=== PATIENT | male | born 1960 | race Caucasian/White ===

== ENCOUNTER 2023-02-12 22:16 | Inpatient (IN) | payer MEDICAID ==
[~2023-02-12] VITALS: Ht 165.1 cm; Wt 71.2 kg
[2023-02-12 22:16] VITALS: BP_SYST 96; PULSE 108; RESP 18; TEMP 97.8; O2SAT 96
[2023-02-13] MEDS ORDERED: NACL 0.9% 1,000 ML IV ONE (01:00)
[2023-02-13] MEDS ORDERED: ONDANSETRON HCL 4 MG/2 ML VIAL IVP ONE (01:15)
[2023-02-13] MEDS ORDERED: TYLL650 GT (01:30)
[2023-02-13] MEDS ORDERED: AMLO5TAB4 GT (01:32)
[2023-02-13] MEDS ORDERED: LACT1TAB14 PEG (01:33)
[2023-02-13] MEDS ORDERED: ALBU2.5V7 INH ×2 (01:33→01:34)
[2023-02-13] MEDS ORDERED: ATOR40TA68 PEG (01:34)
[2023-02-13] MEDS ORDERED: ATRMDI INH ×2 (01:36→01:37)
[2023-02-13] MEDS ORDERED: CHLO473M5 PO (01:39)
[2023-02-13] MEDS ORDERED: BISA10SU77 RC (01:39)
[2023-02-13 01:40] LABS: BASOPHILS # (AUTO) 0.1 K/uL (0.0-0.2); BASOPHILS % (AUTO) 0.6 % (0.0-2.0); EOSINOPHILS % (AUTO) 0.1 % (0.0-4.0); HEMATOCRIT 37.8 % (36-54); HEMOGLOBIN 12.6 g/dL (14.0-18.0); LYMPHOCYTES # (AUTO) 1.4 K/uL (1.0-5.5); LYMPHOCYTES % (AUTO) 5.4 % (20.5-51.5); MEAN CORPUSCULAR HEMOGLOBIN 28 pg (27-31); MEAN CORPUSCULAR HGB CONC 33 % (32-36); MEAN CORPUSCULAR VOLUME 84 fL (79.0-98.0); MONOCYTES # (AUTO) 0.9 K/uL (0.0-1.0); MONOCYTES % (AUTO) 3.5 % (1.7-9.3); NEUTROPHILS # (AUTO) 23.8 K/uL (1.8-7.7); NEUTROPHILS % (AUTO) 90.4 % (40.0-70.0); PLATELET COUNT (AUTO) 465 K/uL (130-430); RED BLOOD CELL COUNT(AUTO) 4.52 MIL/uL (4.2-6.2); RED CELL DISTRIBUTION WIDTH 14.4 % (9.0-15.0); WHITE BLOOD COUNT (AUTO) 26.3 K/uL (4.8-10.8)
[2023-02-13] MEDS ORDERED: VITD2000 PEG (01:42)
[2023-02-13] MEDS ORDERED: LOVI40 SQ (01:43)
[2023-02-13] MEDS ORDERED: HYDR-3917 PEG (01:44)
[2023-02-13] MEDS ORDERED: MELA5TAB12 PEG (01:45)
[2023-02-13] MEDS ORDERED: LOSA50TA3 PEG (01:45)
[2023-02-13] MEDS ORDERED: MULT-1089 PEG (01:46)
[2023-02-13] MEDS ORDERED: ONDA-8 PEG (01:47)
[2023-02-13] MEDS ORDERED: PRO40 PEG (01:48)
[2023-02-13] MEDS ORDERED: POLY17PO4 PEG (01:49)
[2023-02-13 01:51] LABS: CALCIUM 9.2 mg/dL (8.4-11.0); CREATININE 0.86 mg/dL (0.55-1.30); POTASSIUM 4.1 mmol/L (3.5-5.1)
[2023-02-13 01:55] LABS: ALBUMIN 3.2 g/dL (3.4-4.8); TOTAL BILIRUBIN 0.7 mg/dL (0.0-1.0); TOTAL PROTEIN, SERUM 6.9 g/dL (6.4-8.3)
[2023-02-13] MEDS ORDERED: CARB30DR OP (01:55)
[2023-02-13] MEDS ORDERED: ROBINUL PEG (01:56)
[2023-02-13 01:58] LABS: INR 1.1 (0.80-1.20); PROTHROMBIN TIME 11.3 SECS (9.5-12.5)
[2023-02-13] MEDS ORDERED: SCOP1PAT21 TD (01:58)
[2023-02-13] MEDS ORDERED: ASCO500S10 PEG (02:01)
[2023-02-13] MEDS ORDERED: ZINC50TA15 PEG (02:03)
[2023-02-13] MEDS ORDERED: CRAN1CAP6 PEG (02:06)
[2023-02-13] MEDS ORDERED: CRAN1CAP8 PO (02:06)
[2023-02-13] MEDS ORDERED: VANCOMYCIN HCL 1.25 GM/NS 250 ML IV ONE (02:45)
[2023-02-13] MEDS ORDERED: cefTRIAXone 2 GM VIAL ONE (03:51)
[2023-02-13] MEDS ORDERED: PANTOPRAZOLE SODIUM 40 MG/VIAL (PROTONIX) IVP ONE (04:00)
[2023-02-13] MEDS ORDERED: D5/0.45 NS 1,000 ML IV SCH (04:15)
[2023-02-13] MEDS ORDERED: VANCOMYCIN HCL 500 MG/VIAL IV ONE (05:07)
[2023-02-13] MEDS ORDERED: VANCOMYCIN HCL 1000 MG/VIAL IV ONE (05:07)
[2023-02-13] MEDS ORDERED: ONDANSETRON HCL 4 MG/2 ML VIAL ONE (05:34)
[2023-02-13 05:53] LABS: BILIRUBIN,URINE NEGATIVE (NEGATIVE); BLOOD, URINE 2+ (NEGATIVE); COLOR,URINE YELLOW (YELLOW); GLUCOSE,URINE NEGATIVE (NEGATIVE); KETONES,URINE NEGATIVE (NEGATIVE); LEUKOCYTE ESTERASE ,URINE NEGATIVE (NEGATIVE); NITRITE, URINE NEGATIVE (NEGATIVE); PROTEIN URINE TRACE (NEGATIVE); UROBILINOGEN,URINE 0.2 (0.2-1.0)
[2023-02-13 06:25] LABS: CLARITY/URINE HAZY (CLEAR)
[2023-02-13 06:27] LABS: BACTERIA,URINE None Seen /HPF (None Seen); CALCIUM OXALATE CRYSTALS,UR 0-10 /HPF (None Seen); RBC,URINE 20-50 /HPF (0-3); WBC,URINE 0-3 /HPF (0-3)
[2023-02-13] MEDS: PANTOPRAZOLE SODIUM 40 MG/VIAL (PROTONIX) IVP SCH ×2 (09:00→23:10)
[2023-02-13] MEDS ORDERED: KETOROLAC TROMETHAMINE 30 MG VIAL IVP PRN (10:15)
[2023-02-13] MEDS ORDERED: IPRATROPIUM/ALBUTEROL SULFATE 3 ML AMPUL.NEB (DUONEB) INH PRN (11:15)
[2023-02-13 13:14] VITALS: O2SAT 96
[2023-02-13] MEDS: IPRATROPIUM/ALBUTEROL SULFATE 3 ML AMPUL.NEB (DUONEB) INH SCH ×2 (13:14→20:13)
[2023-02-13 13:40] VITALS: BP_SYST 104; PULSE 91; O2SAT 96
[2023-02-13] MEDS ORDERED: BISACODYL 10 MG/SUPPOSITORY RC PRN (13:45)
[2023-02-13] MEDS ORDERED: IPRATROPIUM BROMIDE 17 mCg/ACTUATION, 12.9 GM AER.W.ADAP INH PRN (13:45)
[2023-02-13] MEDS ORDERED: HYDROmorphone 2 MG/ML VIAL IVP PRN (13:45)
[2023-02-13] MEDS ORDERED: ALBUTEROL SULFATE 0.083% 2.5 MG/3 ML VIAL.NEB INH PRN ×2 (13:45)
[2023-02-13] MEDS ORDERED: ACETAMINOPHEN 650 MG/20.3 ML UDC GT PRN (13:45)
[2023-02-13] MEDS ORDERED: ONDANSETRON HCL 4 MG/2 ML VIAL IVP PRN (14:00)
[2023-02-13] MEDS ORDERED: IPRATROPIUM BROM 0.5 MG/2.5 ML VIAL.NEB (ATROVENT) INH PRN (14:15)
[2023-02-13] MEDS: KCL 20 mEq in D5/0.45NS 1000mL 1,000 ML IV SCH (14:42)
[2023-02-13 20:00] VITALS: BP_SYST 126; PULSE 88; RESP 20; TEMP 97.5; O2SAT 100
[2023-02-13 20:13] VITALS: O2SAT 100
[2023-02-13 22:00] VITALS: O2SAT 100
[2023-02-13] MEDS: CHLORHEXIDINE GLUC 0.12% 15 ML MOUTHWASH UDC MM SCH (22:28)
[2023-02-14] VITALS (11 sets, daily range): BP systolic 103–127; PULSE 88–105; RESP 16–20; TEMP 96.9–97.7; O2SAT 97–100
[2023-02-14] MEDS: IPRATROPIUM/ALBUTEROL SULFATE 3 ML AMPUL.NEB (DUONEB) INH SCH ×4 (01:28→19:23)
[2023-02-14] MEDS: KCL 20 mEq in D5/0.45NS 1000mL 1,000 ML IV SCH ×2 (01:47→14:31)
[2023-02-14 05:08] LABS: BASOPHILS # (AUTO) 0.1 K/uL (0.0-0.2); BASOPHILS % (AUTO) 0.5 % (0.0-2.0); EOSINOPHILS # (AUTO) 0.7 K/uL (0.0-0.4); EOSINOPHILS % (AUTO) 5.7 % (0.0-4.0); HEMATOCRIT 33.3 % (36-54); LYMPHOCYTES # (AUTO) 1.4 K/uL (1.0-5.5); LYMPHOCYTES % (AUTO) 12.3 % (20.5-51.5); MEAN CORPUSCULAR HEMOGLOBIN 28 pg (27-31); MEAN CORPUSCULAR HGB CONC 33 % (32-36); MEAN CORPUSCULAR VOLUME 84 fL (79.0-98.0); MONOCYTES # (AUTO) 0.7 K/uL (0.0-1.0); MONOCYTES % (AUTO) 5.8 % (1.7-9.3); NEUTROPHILS # (AUTO) 8.9 K/uL (1.8-7.7); NEUTROPHILS % (AUTO) 75.7 % (40.0-70.0); PLATELET COUNT (AUTO) 405 K/uL (130-430); RED BLOOD CELL COUNT(AUTO) 3.95 MIL/uL (4.2-6.2); RED CELL DISTRIBUTION WIDTH 14.1 % (9.0-15.0); WHITE BLOOD COUNT (AUTO) 11.8 K/uL (4.8-10.8)
[2023-02-14 05:33] LABS: ALBUMIN 2.8 g/dL (3.4-4.8); CALCIUM 8.8 mg/dL (8.4-11.0); CREATININE 0.73 mg/dL (0.55-1.30); POTASSIUM 3.6 mmol/L (3.5-5.1); TOTAL BILIRUBIN 0.4 mg/dL (0.0-1.0); TOTAL PROTEIN, SERUM 6.2 g/dL (6.4-8.3)
[2023-02-14] MEDS: CHLORHEXIDINE GLUC 0.12% 15 ML MOUTHWASH UDC MM SCH ×2 (09:00→21:03)
[2023-02-14] MEDS: PANTOPRAZOLE SODIUM 40 MG/VIAL (PROTONIX) IVP SCH ×2 (09:00→21:02)
[2023-02-14] MEDS ORDERED: fentaNYL CITRATE/PF 100 MCG/2 ML AMP ONE (11:18)
[2023-02-14] MEDS ORDERED: MIDAZOLAM HCL 5 MG/5 ML VIAL ONE (11:18)
[2023-02-14] MEDS: LOSARTAN POTASSIUM 50 MG TABLET (COZAAR) GT SCH (14:27)
[2023-02-14] MEDS: CHOLECALCIFEROL (VITAMIN D3) 2,000 UNIT TABLET GT SCH (14:28)
[2023-02-14] MEDS: MULTIVITAMINS TAB 1 TABLET GT SCH (14:29)
[2023-02-14] MEDS: POLYETHYLENE GLYCOL 3350, 17 GM/ POWD.PACK PEG SCH (14:29)
[2023-02-14] MEDS: amLODIPine BESYLATE 5 MG TABLET GT SCH (14:29)
[2023-02-14] MEDS ORDERED: SCOPOLAMINE HYDROBROMIDE 1 MG PATCH .72 H (TRANSDERM-SCOP) TD SCH (18:00)
[2023-02-14] MEDS ORDERED: TEMAZEPAM 7.5 MG CAPSULE PO PRN (21:15)
[2023-02-14] MEDS ORDERED: TEMAZEPAM 15 MG CAPSULE GT PRN (21:45)
[2023-02-15] VITALS (12 sets, daily range): BP systolic 105–131; PULSE 87–104; RESP 18–20; TEMP 96.5–98; O2SAT 98–100
[2023-02-15] MEDS: KCL 20 mEq in D5/0.45NS 1000mL 1,000 ML IV SCH ×3 (01:05→17:00)
[2023-02-15] MEDS: IPRATROPIUM/ALBUTEROL SULFATE 3 ML AMPUL.NEB (DUONEB) INH SCH ×4 (01:13→20:01)
[2023-02-15 05:30] LABS: BASOPHILS % (AUTO) 0.3 % (0.0-2.0); EOSINOPHILS # (AUTO) 0.4 K/uL (0.0-0.4); EOSINOPHILS % (AUTO) 3.1 % (0.0-4.0); HEMATOCRIT 31.9 % (36-54); HEMOGLOBIN 10.8 g/dL (14.0-18.0); LYMPHOCYTES # (AUTO) 1.3 K/uL (1.0-5.5); LYMPHOCYTES % (AUTO) 10.4 % (20.5-51.5); MEAN CORPUSCULAR HEMOGLOBIN 28 pg (27-31); MEAN CORPUSCULAR HGB CONC 34 % (32-36); MEAN CORPUSCULAR VOLUME 84 fL (79.0-98.0); MONOCYTES # (AUTO) 0.6 K/uL (0.0-1.0); MONOCYTES % (AUTO) 4.8 % (1.7-9.3); NEUTROPHILS # (AUTO) 9.8 K/uL (1.8-7.7); NEUTROPHILS % (AUTO) 81.4 % (40.0-70.0); PLATELET COUNT (AUTO) 428 K/uL (130-430); RED CELL DISTRIBUTION WIDTH 14.2 % (9.0-15.0); WHITE BLOOD COUNT (AUTO) 12.1 K/uL (4.8-10.8)
[2023-02-15 05:45] LABS: CALCIUM 8.3 mg/dL (8.4-11.0); CREATININE 0.6 mg/dL (0.55-1.30); POTASSIUM 3.5 mmol/L (3.5-5.1)
[2023-02-15] MEDS: POLYETHYLENE GLYCOL 3350, 17 GM/ POWD.PACK PEG SCH (09:00)
[2023-02-15] MEDS: MULTIVITAMINS TAB 1 TABLET GT SCH (09:40)
[2023-02-15] MEDS: CHOLECALCIFEROL (VITAMIN D3) 2,000 UNIT TABLET GT SCH (09:40)
[2023-02-15] MEDS: PANTOPRAZOLE SODIUM 40 MG/VIAL (PROTONIX) IVP SCH ×2 (09:41→20:16)
[2023-02-15] MEDS: LOSARTAN POTASSIUM 50 MG TABLET (COZAAR) GT SCH (09:41)
[2023-02-15] MEDS: CHLORHEXIDINE GLUC 0.12% 15 ML MOUTHWASH UDC MM SCH ×2 (09:42→20:16)
[2023-02-15] MEDS: amLODIPine BESYLATE 5 MG TABLET GT SCH (09:58)
[2023-02-16] MEDS ORDERED: SCOPOLAMINE HYDROBROMIDE 1 MG PATCH .72 H (TRANSDERM-SCOP) TD SCH (09:00)
== END 2023-02-15 20:45 | DRG 241 ==
LOC: SED 22:16 → SMU 02-13 05:38
PROVIDERS: ADMIT Family Medicine; ATTEND Family Medicine
PROC: 0DB68ZX Excision of Stomach, Via Natural or Artificial Opening Endoscopic, Diagnostic (ICD-10-PCS; principal; 2023-02-14 13:00)
DX: K29.71 Gastritis, unspecified, with bleeding (principal); G61.0 Guillain-Barre syndrome; K20.91 Esophagitis, unspecified with bleeding; J96.10 Chronic respiratory failure, unspecified whether with hypoxia or hypercapnia; R53.2 Functional quadriplegia; K76.0 Fatty (change of) liver, not elsewhere classified; Z93.0 Tracheostomy status; R13.10 Dysphagia, unspecified; I10 Essential (primary) hypertension; D72.829 Elevated white blood cell count, unspecified; Z79.899 Other long term (current) drug therapy; Z93.1 Gastrostomy status
CPT/HCPCS: 36415; 43239; 71045; 76700-TC; 80048; 80053; 81000; 83051; 83605; 83690; 83735; 85025; 85610-TC; 85730-TC; 86886; 86900; 86901; 87040; 87070-TC; 87081; 87205-TC; 94640; 94760; 96361; 96365; 96367; 96375; 99291; C9113; J0696; J1885; J2250; J2405; J3010; J3370